=== PATIENT | female | born 2000 | race Caucasian/White ===

== ENCOUNTER 2023-08-13 13:16 | Outpatient (CLI) | payer OTHER ==
[2023-08-13 15:21] LABS: Hematocrit 38.5 % (34.9-44.5)
[2023-08-13 15:36] LABS: BHCG - Serum Negative (NEGATIVE); Pregs Control Background? CLEAR/WHITE (CLR/WHITE); Pregs Control Bar Appear? YES (CONTROL BAR)
== END 2023-08-13 13:17 | disposition home or self-care (01) ==
LOC: LABBT 13:16
PROVIDERS: ATTEND Otolaryngology Plastic Surgery within the Head & Neck
DX: Z01.812 Encounter for preprocedural laboratory examination (principal); J34.2 Deviated nasal septum; J34.3 Hypertrophy of nasal turbinates
CPT/HCPCS: 84703; 85014

== ENCOUNTER 2023-08-14 06:49 | Day surgery (SDC) | payer OTHER ==
[2023-08-13 14:01] VITALS: BMI 23.0
[2023-08-14] MEDS ORDERED: Oxymetazoline HCl 0.05% (30 ML BOT) ONE (08:27)
[2023-08-14] MEDS ORDERED: PROPOFOL 40 ML ONE (08:37)
[2023-08-14] MEDS ORDERED: fentaNYL PF 100 MCG/2 ML SYRINGE ONE (08:37)
[2023-08-14] MEDS ORDERED: Midazolam HCl 2 mg/2 ml Vial ONE (08:37)
[2023-08-14] MEDS ORDERED: Lidocaine 1% PF 5 ML VIAL ONE ×2 (08:38→09:41)
[2023-08-14] MEDS ORDERED: Ondansetron PF 4 MG/2 ML Vial ONE ×2 (08:38→09:41)
[2023-08-14] MEDS ORDERED: Dexamethasone 20 MG/5 ML VIAL ONE ×2 (08:38→09:41)
[2023-08-14] MEDS ORDERED: EPINEPHrine 1 MG/ML VIAL ONE (09:11)
[2023-08-14] MEDS ORDERED: Lidocaine 1% (PF) 30 ML VIAL ONE (09:11)
[2023-08-14] MEDS ORDERED: Bacitracin Zinc Ointment 30 gm TUBE ONE (09:11)
[2023-08-14] MEDS ORDERED: PROPOFOL 200 MG/20 ML VIAL ONE (09:41)
== END 2023-08-14 12:10 | disposition home or self-care (01) ==
LOC: SDC 06:49
PROVIDERS: ATTEND Otolaryngology Plastic Surgery within the Head & Neck
PROC: 09SM0ZZ Reposition Nasal Septum, Open Approach (ICD-10-PCS; principal; 2023-08-14)
DX: J34.2 Deviated nasal septum (principal); J34.3 Hypertrophy of nasal turbinates; J01.90 Acute sinusitis, unspecified; J30.1 Allergic rhinitis due to pollen; J30.81 Allergic rhinitis due to animal (cat) (dog) hair and dander; J30.89 Other allergic rhinitis; L50.0 Allergic urticaria; F41.9 Anxiety disorder, unspecified; Z88.2 Allergy status to sulfonamides; Z90.89 Acquired absence of other organs; Z79.899 Other long term (current) drug therapy
CPT/HCPCS: J0171; J1100; J2001; J2250; J2405; J2704